=== PATIENT | female | born 1985 | race Asian ===

== ENCOUNTER 2018-02-26 22:51 | Emergency (ER) | payer MEDICAID ==
[~2018-02-26] VITALS: Ht 162.6 cm; Wt 54.4 kg
[2018-02-26 23:01] VITALS: Ht 162.6 cm; Wt 54.4 kg
[2018-02-27 00:01] LABS: BASOPHIL % 0.2 % (0-2); PLATELET COUNT 227 x10^3mcL (130-400); RED CELL DISTRIBUTION WIDTH 12.9 % (11.5-14.5)
[2018-02-27 00:06] LABS: CALCIUM 8.7 mg/dL (8.5-10.1); CARBON DIOXIDE 27.3 mmol/L (21-32); CHLORIDE SERUM 106 mmol/L (98-107); CREATININE SERUM 0.8 mg/dL (0.6-1.0); GFR1 > 60 mL/min; GLUCOSE SERUM 107 mg/dL (74-106); POTASSIUM SERUM 3.4 mmol/L (3.5-5.1); SODIUM SERUM 143 mmol/L (136-145)
[2018-02-27 00:12] LABS: ALKALINE PHOSPHATASE 42 U/L (46-116); ALT/SGPT 25 U/L (14-59); AST/SGOT 6 U/L (15-37); BILIRUBIN TOTAL 0.4 mg/dL (0.20-1.00); TOTAL PROTEIN, SERUM 7.7 g/dL (6.4-8.2)
[2018-02-27 01:38] LABS: UA SPECIFIC GRAVITY 1.015 (1.005-1.035); microscopic required? YES; urine erythrocyte 1+ (NEGATIVE)
[2018-02-27 02:43] VITALS: BP 98/72
== END 2018-02-27 02:43 | disposition home or self-care (01) ==
LOC: ED 22:51
PROVIDERS: Emergency Medicine
DX: R42 Dizziness and giddiness (principal)
CPT/HCPCS: J8597